=== PATIENT | female | born 1945 | race African-American/Black ===

== ENCOUNTER 2016-10-28 09:34 | Day surgery (SDC) | payer OTHER ==
[2016-10-20 12:53] VITALS: BMI 37.9
[2016-10-28 12:43] VITALS: TEMP 97.6
[2016-10-28 13:06] VITALS: PULSE 55
[2016-10-28 14:19] VITALS: BP 122/76
--- NOTE | 2016-10-29 13:26 | PATH ---
Surgical Pathology Report Patient Name: PATY REDMOND [facility]. Rec. #: [id number] /Age/Gender: 1945 (Age: 70) / F Account: [id number] Location: [facility]-ENDOSCOPY Taken: 10/28/2016 Received: 10/28/2016 Reported: 10/29/2016 Physicians: Anthony Reyes M.D. Specimen(s) Received BX HEPATIC FLEXURE Clinical History History of colon polyp Hepatic flexure polyp Final Diagnosis COLON, HEPATIC FLEXURE, POLYP, BIOPSY: CONSISTENT INFLAMMATORY/POSTINFLAMMATORY-TYPE POLYP. Electronically Signed Art Arellano M.D. Gross Description Received in formalin, labeled "biopsy hepatic flexure polyp" are 2 lima, irregular portions of soft tissue measuring 0.2 and 0.3 cm in greatest dimension. The specimens are submitted in toto in one cassette. /10/28/201610/28/2016
== END 2016-10-28 14:10 | disposition home or self-care (01) ==
LOC: JASU-ENDO 09:34
PROVIDERS: ATTEND Internal Medicine Gastroenterology
PROC: 0DBE8ZX Excision of Large Intestine, Via Natural or Artificial Opening Endoscopic, Diagnostic (ICD-10-PCS; principal; 2016-10-28 11:00)
DX: Z86.010 Personal history of colon polyps (principal); K63.5 Polyp of colon
CPT/HCPCS: 88305-TC